=== PATIENT | male | born 1950 | race Hispanic/Latino ===

== ENCOUNTER → 2024-04-25 | Outpatient (CLI) | payer MEDICARE ==
[2024-04-25] MEDS: REGADENOSON 0.4 MG/5 ML PF SYG IVP ONE (15:11)
--- NOTE | 2024-04-26 12:10 | HMCSR ---
APPROVED REPORT Height: 6 ft 2in Weight: 225 lbs TEST INDICATIONS CAD The imaging protocol used to acquire images was Rest Tc-99m/stress Tc-99m 1 day Consent: The procedure was explained and understood by the patient. Informerd consent was witnessed Den Gallardo RN First, low dose rest was performed then high dose stress. RESTING DATA: The resting ekg shows: Atiral pacing, LVH Rest SPECT myocardial perfusion imaging was performed in supine position 86 minutes following the int ravenous injection of 10 mCi of Tc-99 Sestamibi. Time of rest injection: 09:05: Date: 04/25/2024 Time of rest imagin:31: Date: 04/25/2024 PHARMACOLOGIC STRESS: Pharmacologic stress test was performed by injecting regadenoson 0.4 mg IV push followed by the intra venous injection of At mCi of Tc-99 Sestamibi. Time of stress injection: 10:55: Date: 04/25/2024 Time of stress imagin:38: Date: 04/25/2024 Heart Rate at time of stress injection: 59 bpm. Gated Stress SPECT was performed 103 minutes after stress injection. The images were gated to evaluate regional wall motion and calculate left ventricular ejection fracti on. STRESS DETAILS Reason for Termination: Infusion complete Stress Symptoms: No chest pain or symptoms Max HR Achieved: 71 bpm % of APMHR Achieved: 49 Max Blood Pressure: 153/78 mmHg Stress ECG: Pacemaker Conclusion Inferior and apical infarct LV ejection fraction 45% No ischemia Dilated LV at rest and stress No increased lung uptake Hypokinetic inferior wall and apex
== END | disposition home or self-care (01) ==
LOC: SHCH 08:37
PROVIDERS: ATTEND Internal Medicine Cardiovascular Disease
DX: I51.7 Cardiomegaly (principal); I21.19 ST elevation (STEMI) myocardial infarction involving other coronary artery of inferior wall; I25.10 Atherosclerotic heart disease of native coronary artery without angina pectoris
CPT/HCPCS: 78452; 93017; J2785; A9500 ×2